=== PATIENT | female | born 1985 | race Two or more races ===

== ENCOUNTER 2020-03-08 14:31 | Emergency (ER) | payer OTHER ==
[~2020-03-08] VITALS: Ht 167.6 cm; Wt 108.9 kg
[2020-03-08 17:10] VITALS: BP 141/89
== END 2020-03-08 20:37 | disposition home or self-care (01) ==
LOC: ER 14:31
DX: U07.1 COVID-19 (principal)
CPT/HCPCS: 36415; 71045; 87426